=== PATIENT | female | born 1965 | race Two or more races ===

== ENCOUNTER 2016-10-12 20:11 | Emergency (ER) | payer OTHER ==
[2016-10-12 20:17] VITALS: BP 149/89; PULSE 81; TEMP 97.8; BMI 22.1
[2016-10-12] MEDS ORDERED: KETOROLAC TROMETHAMINE 60 MG/2 ML VIAL IM ONE (21:37)
[2016-10-12] MEDS ORDERED: KETOROLAC TROMETHAMINE 60 MG/2 ML VIAL ONE (21:40)
--- NOTE | 2016-10-12 21:43 | PDOC ---
History of Present Illness - General Chief Complaint: Pain, Acute Stated Complaint: NECK PAIN Time Seen by Provider: 10/12/16 21:29 History Source: Patient Exam Limitations: No Limitations - History of Present Illness Initial Comments: 10/12/16 21:37 51 yr female no medical history with c/o stiff neck for 3 days started wednesday night felt pain to the right side of neck. no headache no dizzyness no vision changes. Pt states the pain was worse lying down and continues. pain with turning neck side to side. no fever no chills no recent travel no trauma. denies arm pain or numbness. Severity: moderate Associated Symptoms: reports: denies symptoms Past History - Past Medical History Allergies/Adverse Reactions: Allergies Allergy/AdvReac Type Severity Reaction Status Date / Time No Known Allergies Allergy Verified 10/12/16 20:16 Home Medications: Ambulatory Orders Cyclobenzaprine HCl [Flexeril 10 mg] 5 mg PO TID PRN #21 tablet 10/13/16 Ketorolac Tromethamine [Toradol -] 10 mg PO Q6H PRN #28 tablet 10/13/16 - Family Disease History Comment:: 10/12/16 21:39 none - Psycho/Social/Smoking Cessation Hx Suicidal Ideation: No Smoking History: Never smoked Review of Systems - Review of Systems Able to Perform ROS?: Yes Is the patient limited Armenian proficient: No Constitutional: No: Symptoms Reported HEENTM: No: Symptoms Reported Respiratory: No: Symptoms reported Cardiac (ROS): No: Symptoms Reported ABD/GI: No: Symptoms Reported : No: Symptoms Reported Musculoskeletal: Yes: See HPI, Neck Pain *Physical Exam - Vital Signs Last Vital Signs Temp Pulse Resp BP Pulse Ox 97.8 F 81 18 149/89 99 10/12/16 20:16 10/12/16 20:16 10/12/16 20:16 10/12/16 20:16 10/12/16 20:16 - Physical Exam General Appearance: Yes: Nourished, Appropriately Dressed HEENT: positive: EOMI, JAME, Normal ENT Inspection, TMs Normal, Pharynx Normal Neck: positive: Normal Thyroid, Supple, Decreased range of motion, Tender lateral. negative: Rigid, Carotid bruit, Lymphadenopathy (R), Lymphadenopathy ( L), Tender midline Respiratory/Chest: positive: Lungs Clear, Normal Breath Sounds Cardiovascular: positive: Regular Rhythm, Regular Rate Extremity: positive: Normal Capillary Refill, Normal Inspection, Normal Range of Motion Integumentary: positive: Normal Color, Dry, Warm Neurologic: positive: Fully Oriented, Alert, Normal Mood/Affect, Normal Response , Motor Strength 5/5, Other (neg menigeal signs ) Medical Decision Making - Medical Decision Making 10/12/16 21:40 cc: neck stiffness pain to the right side lateral of neck with muscle spasm no vetebral tenderness no rashes will give toradol dc with flexeril and toradol strict follow up with in 1-2 days 10/14/16 16:05 *DC/Admit/Observation/Transfer Diagnosis at time of Disposition: Neck muscle strain Qualifiers: Encounter type: initial encounter Qualified Code(s): S16.1XXA - Strain of muscle, fascia and tendon at neck level, initial encounter - Discharge Dispostion Disposition: HOME Condition at time of disposition: Good - Prescriptions Prescriptions: Cyclobenzaprine HCl [Flexeril 10 mg] 5 mg PO TID PRN #21 tablet PRN Reason: Muscle Spasms Ketorolac Tromethamine [Toradol -] 10 mg PO Q6H PRN #28 tablet PRN Reason: Pain - Referrals Referrals: Osmani Bowers MD [Primary Care Provider] - - Patient Instructions Additional Instructions: take the muscle relaxant as prescribed, you can take up to three times a day it may MAKE YOU DROWSY DO NOT DRIVE, OPERATE MACHINERY OR DRINK ALCOHOL take toradol as prescribed for pain follow with in 1-2 days for follow up Return if any worsening symptoms
== END 2016-10-12 21:57 | disposition home or self-care (01) ==
LOC: JERFT 20:11
PROC: 3E0233Z Introduction of Anti-inflammatory into Muscle, Percutaneous Approach (ICD-10-PCS; principal; 2016-10-12)
DX: S16.1XXA Strain of muscle, fascia and tendon at neck level, initial encounter (principal); M62.838 Other muscle spasm; X58.XXXA Exposure to other specified factors, initial encounter; Y93.89 Activity, other specified; Y92.018 Other place in single-family (private) house as the place of occurrence of the external cause
CPT/HCPCS: 99281-25